=== PATIENT | male | born 1970 | race Caucasian/White ===

== ENCOUNTER 2025-08-10 11:22 | Emergency (ER) | payer BC ==
[~2025-08-10] VITALS: Ht 177.8 cm; Wt 72.6 kg
[2025-08-10 11:28] VITALS: BP 144/97
[2025-08-10] MEDS ORDERED: TDAP DIPH,PERTUSS,TET VAC/PF 0.5 ML DISP.SYRIN IM ONE (11:49)
[2025-08-10] MEDS: TDAP DIPH,PERTUSS,TET VAC/PF 0.5 ML DISP.SYRIN IM ONE (12:02)
[2025-08-10] MEDS ORDERED: NEOMY/BACITRA/POLYMYXIN B OINT UD PACKET TP ONE (12:41)
[2025-08-10 13:04] VITALS: BP 138/90; TEMP 97.9; O2SAT 98
[2025-08-10] MEDS: NEOMY/BACITRA/POLYMYXIN B OINT UD PACKET TP ONE (13:12)
== END 2025-08-10 13:13 | disposition home or self-care (01) ==
LOC: ER 11:32
DX: S61.211A Laceration without foreign body of left index finger without damage to nail, initial encounter (principal); Z90.49 Acquired absence of other specified parts of digestive tract; W26.8XXA Contact with other sharp object(s), not elsewhere classified, initial encounter; Y93.89 Activity, other specified; Y92.89 Other specified places as the place of occurrence of the external cause; Y99.8 Other external cause status
CPT/HCPCS: 90715; A4606; A4663